=== PATIENT | male | born 1945 | race Caucasian/White ===

== ENCOUNTER 2024-07-13 10:42 | Day surgery (SDC) | payer MEDICARE, OTHER ==
[~2024-07-13] VITALS: Ht 175.3 cm; Wt 87.5 kg
[~2024-07-13 10:42] MED LIST: ASPI81CH33 PO; COLA50CA5 PO; CVS1CAP2 PO; DIPH12.529 PO; FINA5TAB2 PO; LISI20TA33 PO; METO1TAB32 PO; NS 1,000 ML IV ONE; OMEP10CASR PO; ROSU20TA61 PO; THERTAB52 PO
[2024-07-13] MEDS ORDERED: propofoL 200 MG/20 ML VIAL As Ordered ONE (12:03)
[2024-07-13] MEDS ORDERED: LIDOCAINE 2% 100MG/5ML SDV (FOR ANES.) As Ordered ONE (12:03)
[2024-07-13 12:27] VITALS: TEMP 97.2
[2024-07-13 13:07] VITALS: BP 133/62; O2SAT 95
== END 2024-07-13 13:12 | disposition home or self-care (01) ==
LOC: M OPP 10:42
PROVIDERS: ATTEND Surgery
DX: Z86.010 Personal history of colon polyps (principal); Z80.0 Family history of malignant neoplasm of digestive organs; K63.5 Polyp of colon; K31.A19 Gastric intestinal metaplasia without dysplasia, unspecified site; K64.4 Residual hemorrhoidal skin tags; K57.30 Diverticulosis of large intestine without perforation or abscess without bleeding; K31.89 Other diseases of stomach and duodenum; K31.819 Angiodysplasia of stomach and duodenum without bleeding; K25.9 Gastric ulcer, unspecified as acute or chronic, without hemorrhage or perforation; I10 Essential (primary) hypertension; E78.00 Pure hypercholesterolemia, unspecified; K21.9 Gastro-esophageal reflux disease without esophagitis; M19.90 Unspecified osteoarthritis, unspecified site; Z85.828 Personal history of other malignant neoplasm of skin; Z87.891 Personal history of nicotine dependence; Z88.1 Allergy status to other antibiotic agents; Z88.5 Allergy status to narcotic agent; Z88.6 Allergy status to analgesic agent; Z79.82 Long term (current) use of aspirin; Z79.899 Other long term (current) drug therapy